=== PATIENT | female | born 1985 | race African-American/Black ===

== ENCOUNTER 2018-11-12 09:06 | Emergency (ER) | payer SELFPAY ==
[2018-11-12 09:24] VITALS: BP 125/81; PULSE 72; TEMP 98.5; BMI 26.6
--- NOTE | 2018-11-12 10:35 | PDOC ---
History of Present Illness - General Chief Complaint: Vaginal Sxs Stated Complaint: VAGINAL SWELLING Time Seen by Provider: 11/12/18 10:05 History Source: Patient Exam Limitations: Clinical Condition - History of Present Illness Initial Comments: 11/12/18 11:12 Patient with no significant past medical history present with complaint of 2 months history of intermittent vaginal swelling with itching comes and goes for a few days. Patient reports she was seen in ER 2 months ago for symptoms and all workup came back negative but she never followed up with [facility]. Patient reported with rash and itching to skin of vaginal area and vulvar area. Denies any other symptoms. Timing/Duration: other (2 months) Past History - Past Medical History Allergies/Adverse Reactions: Allergies Allergy/AdvReac Type Severity Reaction Status Date / Time Penicillins Allergy Verified 11/12/18 10:15 Home Medications: Ambulatory Orders Miconazole Nitrate [Miconazole 7] 45 gm VG BID 7 Days #1 tube 11/12/18 Terconazole 80 mg VG HS 5 Days #5 supp.vag 11/12/18 COPD: No - Immunization History Immunization Up to Date: Yes - Suicide/Smoking/Psychosocial Hx Smoking Status: No Smoking History: Never smoked Number of Cigarettes Smoked Daily: 0 Hx Alcohol Use: No Drug/Substance Use Hx: No Substance Use Type: None Review of Systems - Review of Systems Able to Perform ROS?: Yes Is the patient limited Danish proficient: No Constitutional: No: Symptoms Reported HEENTM: No: Symptoms Reported Respiratory: No: Symptoms reported Cardiac (ROS): No: Symptoms Reported ABD/GI: No: Symptoms Reported : Yes: See HPI, Other (vulva itching and redness). No: Burning, Dysuria, Discharge, Frequency, Flank Pain, Hematuria, Urgency Musculoskeletal: No: Symptoms Reported Integumentary: Yes: See HPI, Erythema (vulva area), Pruritus (vulva area) All Other Systems: Reviewed and Negative *Physical Exam - Vital Signs Last Vital Signs Temp Pulse Resp BP Pulse Ox 98.5 F 72 16 125/81 100 11/12/18 09:21 11/12/18 09:21 11/12/18 09:21 11/12/18 09:21 11/12/18 09:21 - Physical Exam General Appearance: Yes: Nourished, Appropriately Dressed. No: Apparent Distress HEENT: positive: Normal ENT Inspection Neck: positive: Supple Respiratory/Chest: negative: Respiratory Distress, Accessory Muscle Use Cardiovascular: positive: Regular Rhythm, Regular Rate Female Pelvic Exam: positive: cervical os closed, other (increase erythema with excoriations from scratching to b/l labial area and introitus. no vaginal discharge). negative: CMT, discharge, lesions, vaginal bleeding Musculoskeletal: positive: Normal Inspection Extremity: positive: Normal Inspection Neurologic: positive: Fully Oriented, Alert Medical Decision Making - Medical Decision Making 11/12/18 11:16 Patient with no significant past medical history present with complaint of 2 months history of intermittent rash and itching to vulvar area with intermittent over swelling. Exam significant for mild erythema to labial area and introitus with excoriations from scratching. No vaginal discharge. Patient is stable for outpatient management of vulvar candidiasis with miconazole topical cream and terconazole vaginal suppository which [facility] follow-up *DC/Admit/Observation/Transfer Diagnosis at time of Disposition: Vulval candidiasis Vaginitis Qualifiers: Chronicity: subacute Qualified Code(s): N76.1 - Subacute and chronic vaginitis - Discharge Dispostion Disposition: HOME Condition at time of disposition: Stable Decision to Admit order: No - Prescriptions Prescriptions: Miconazole Nitrate [Miconazole 7] 45 gm VG BID 7 Days #1 tube Terconazole 80 mg VG HS 5 Days #5 supp.vag - Referrals Referrals: Gabriel Yousif MD [Staff Physician] - - Patient Instructions Printed Discharge Instructions: DI for Vaginal Itching Additional Instructions: take medications as prescribed. Follow-up with referred [facility] - Post Discharge Activity
== END 2018-11-12 10:37 | disposition home or self-care (01) ==
LOC: JERFT 09:06
DX: B37.3 Candidiasis of vulva and vagina (principal); N76.1 Subacute and chronic vaginitis
CPT/HCPCS: 99281-25